=== PATIENT | male | born 1970 | race Two or more races ===

== ENCOUNTER 2024-11-22 14:46 | Emergency (ER) | payer MEDICAID, SELFPAY ==
[2024-11-22 15:48] VITALS: BP 141/82; PULSE 63; RESP 18; TEMP 37.1; O2SAT 96; BMI 35.2
--- NOTE | 2024-11-22 16:05 | XR_ITS ---
EXAMINATION: XR knee RT 3V ORDERING PROVIDER: Rodrigue Ramires NP HISTORY: pain with walking TECHNIQUE: 3 radiographs of the right knee were obtained. COMPARISON: None. FINDINGS: No acute fracture or dislocation. Mild medial and patellofemoral compartment degenerative changes. Trace knee joint effusion. Punctate radiopaque densities project over the soft tissues posterior and lateral to the proximal tib-fib. Partially viewed lobular high density object anterior to the mid femoral shaft on single view only. This may be external to the patient, but is of uncertain clinical significance. IMPRESSION: 1. No acute bony findings. 2. Trace knee joint effusion. 3. Punctate radiopaque densities projecting over the soft tissues posterior and lateral to the proximal tib-fib. This may represent punctate radiopaque foreign objects or plate artifact.
--- NOTE | 2024-11-22 16:06 | EDNOTE_ITS ---
<Statement entered by Karlie Zapata MD - 11/22/24 17:38> As co-signing physician, I was present and available for consult prn. I concur with the plan and care as documented by the midlevel provider. ED General RME/HPI General Chief complaint: Back Pain/Injury Stated complaint: RIGHT LEG PAIN AND LEFT EAR PAIN Time Seen by Provider: 11/22/24 16:02 Arrival date/time: 11/22/24 14:46 CC: Right knee pain HPI ongoing for the past 2 months, denies any redness swelling pus or fever no pain in any other joint. No primary care doctor no medications. Not in any acute distress. Related Data Previous Rx's ?Medication ?Instructions ?Recorded ibuprofen 400 mg tablet 400 mg PO Q8H #20 tabs 11/22 Allergies Allergy/AdvReac Type Severity Reaction Status Date / Time No Known Allergies Allergy Verified 11/22/24 14:48 Review of Systems Review of Systems Narrative Review of Systems: GEN: No fever, no chills, no weight loss EYES: No discharge, no visual changes, no pain HEENT: No ear pain, no congestion, no sore throat PULM: No shortness of breath, no cough, no congestion CV: No chest pain, no dyspnea on exertion, no palpitations GI: No nausea, no vomiting, no diarrhea, no pain, no constipation : No frequency, no urgency, no dysuria MUSC/SKEL: + joint pain, no back pain SKIN: No rash PSYCH: No hallucinations, no depression HEME/LYMPH: No easy bleeding or bruising tendencies NEURO: No weakness, no headache Past Medical History Social History SMOKING STATUS: Never smoker ED Exam Narrative Physical exam: [General: Obese not in any acute distress Head normocephalic HEENT: Ears: Type patient had me assess his ears, and the left ear EAC is clear but he has an old ruptured TM with small amount of fluid behind it. No exquisite tenderness no surrounding erythema or edema, l right within acceptable limits Neck is supple nontender Chest equal chest rise nontender to palpation Respiratory: Clear to auscultation no wheezes crackles or rubs CV: Rate rhythm is regular no murmurs rubs or clicks Abdomen is soft nontender no masses positive bowel sounds all 4 quadrants Back: No CVA tenderness no spinous process tenderness from cervical spine thoracic and lumbar spine Skin: Intact no petechiae rash induration ulceration or crepitus Extremities: Right knee, minimal and edema, no erythema nontender to touch no fluctuance no posterior fossa pain full range of manage weightbearing. Moving all other extremities against resistance cap refill less than 2 seconds neurosensory intact Neuro: Awake alert oriented x3 Glascow coma 15 no focal deficits] Course Quality Measures none Orders Category Date Time Status XR knee RT 3V Stat Exams 11/22/24 16:05 Completed Ketorolac Inj [Toradol Inj] Med 11/22/24 16:05 Discontinued 15 mg IM X1 ONE Vital Signs Vital signs: Vital Signs Temperature 98.8 F 11/22/24 15:48 Pulse Rate 63 11/22/24 15:48 Respiratory Rate 18 11/22/24 15:48 Blood Pressure 141/82 H 11/22/24 15:48 Pulse Oximetry (%) 96 11/22/24 15:48 Oxygen Delivery Method Room Air 11/22/24 15:48 MDM Patient data External records reviewed:: [facility] previous records Clinical information provided by:: patient Social determinants that could affect healthcare access:: none Patient has the following chronic illnesses:: None How is presenting disease/condition affected by chronic disease/condition?: uneffected by Evaluation data The following diagnostics were reviewed and interpreted by me:: radiology exam(s) Lab and/or radiology exams considered but not ordered:: X-ray shows no acute finding that requires emergent or immediate intervention of the knee. Interpretation Summary: Ruptured eardrum left side, chronic knee pain Medications Medications considered but not ordered:: None Medication administrations:: Medication Administration History Discontinued Medications Ketorolac Tromethamine (Ketorolac Inj 60 Mg/2 Ml Vial) 15 mg IM X1 ONE Stop: 11/22/24 16:06 Last Admin: 11/22/24 16:56 Dose: 15 mg Documented By: None Consultations Consultation(s) initiated? (list below): No Diagnosis Differential Diagnosis ED Complaint MDM: Ruptured TM knee fracture knee pain Most likely diagnosis given after review of the tests above:: Ruptured TM knee pain Admission Indicated Admission indicated?: not indicated Explain why admission is indicated or not indicated:: Stable for outpatient Admission Request Was there a request for admission?: No Disposition Plan Disposition Plan: Discharge Discharge Attestation Discharge Attestation: The patient and all family members were given an opportunity to ask questions and understood the discharge instructions. Discharge instructions specifically effects, indications for sooner follow up or return to the emergency department, and the expected course of current diagnosis. Patient condition: Stable Medical Decision Making Differential Diagnosis Differential Diagnosis: Ruptured TM knee fracture knee pain Discharge Plan Plan Patient Disposition: HOME (Self Care) Patient condition on transfer: Stable Prescriptions/Referrals Prescriptions/Med Rec: New ibuprofen 400 mg tablet 400 mg PO Q8H Qty: 20 0RF Referrals: Galen Rivas MD [Physician] - In 1 week No Primary/Family,Physician [Primary Care Provider] - In 1 week Robin Tian DO [Physician] - In 1 week Problem List Clinical Impression: Knee pain, Ruptured eardrum Patient/Caregiver Discharge Instructions Education Materials: ED Knee Pain of Uncertain Cause, ED Ruptured Eardrum, Traumatic Print Language: Lithuanian Stand Alone Forms: Marilin Award Info., Work/School Release, Patient Portal Info Letter MATTHEW/KEN Supervising Physician PA/KEN Supervising Physician: Rodrigue Ramires ENP
[2024-11-22] MEDS: KETOROLAC INJ 60 MG/2 ML VIAL 15 MG IM (16:56)
== END 2024-11-22 17:21 | disposition home or self-care (01) ==
PROVIDERS: Emergency Provider Emergency Medicine
DX: M25.561 Pain in right knee (principal); H72.92 Unspecified perforation of tympanic membrane, left ear
CPT/HCPCS: 73562; 96372; 99283; J1885

== ENCOUNTER → 2025-01-11 | Outpatient (CLI) | payer MEDICAID, SELFPAY ==
--- NOTE | 2025-01-11 16:30 | XR_ITS ---
Exam: MRI knee without contrast, right Date and time of exam: January 11, 2025 1701 hours INDICATIONS: Medial and anterior knee pain and stiffness and swelling beginning 2 years ago Technique: Multiple axial, coronal, and sagittal sections on the knee have been obtained. T2-Weighted sagittal, fat-suppressed images, TR 3,500, TE 62, T2 weighted coronal fat-saturated images, TR 3,500, TE 62 Proton density sagittal sections, TR 1800, TE 31. T-1 weighted coronal images, TR 524, TE 13.0 Findings: Medial meniscus anterior horn abnormal, truncation inner margin. Medial meniscus, body marked truncation inner margin with large horizontal linear tear communicating inner margin. Posterior horn medial meniscus marked truncation inner margin with horizontal linear tear communicating inner margin. Lateral meniscus anterior horn is intact Lateral meniscus, body is intact Posterior horn lateral meniscus is intact Anterior cruciate ligament moderately attenuated Posterior cruciate ligament appears intact. Knee effusion is large. Quadriceps and patellar tendons appear intact. There is no evidence of tendinosis. Inflammatory change or fracture of Hoffa's fat pad is not seen. Medial patellar facet demonstrates moderate thinning. Lateral patellar facet cartilage demonstrates moderate thinning. Trochlear cartilage demonstrates moderate thinning. Significant softening of the cartilage posterior patella at the median eminence Marrow signal adequate. Medial collateral ligament appears intact. No meniscocapsular separation is seen. Illiotibial band and fibular collateral ligament are intact. Biceps femoris tendons appear intact. Medial femoral condylar articular cartilage demonstrates severe thinning. Lateral femoral condylar articular cartilage demonstratesmoderate thinning. Tibial plateau cartilage demonstrates severe medial thinning. Impression: Extensive medial meniscus tears Moderate attenuation anterior cruciate ligament Significant softening of the cartilage posterior patella at the median eminence Severe thinning cartilage medial joint space
== END | disposition home or self-care (01) ==
LOC: SMRI 16:11
PROVIDERS: PCP Family Medicine; Referring Provider Family Medicine; Visit Provider Family Medicine
DX: S83.241A Other tear of medial meniscus, current injury, right knee, initial encounter (principal); X58.XXXA Exposure to other specified factors, initial encounter; M25.861 Other specified joint disorders, right knee; M94.8X8 Other specified disorders of cartilage, other site; G89.29 Other chronic pain
CPT/HCPCS: 73721

== ENCOUNTER 2025-03-19 14:28 | Outpatient (AMB) | payer MEDICAID, SELFPAY ==
[2025-03-19 14:53] VITALS: BP 137/83; PULSE 87; RESP 19; TEMP 36.7; O2SAT 96; BMI 35.6
--- NOTE | 2025-03-19 14:53 | PD.ORTHCLVIS ---
Vital signs 03/19/25 14:53 Height 1.65 m Height Method Stated Weight 97.239 kg Weight Measurement Method Standing Scale BMI 35.6 BP 137/83 H Blood Pressure Source Automatic Cuff Blood Pressure Location Right Upper Arm Position Sitting Respiration 19 Pulse 87 Pulse Source Monitor Temp 98.0 F Temp Source Temporal Artery Scan Pulse Oximetry (%) 96 Oxygen Delivery Method Room Air Med/Allergies Allergies & Medications Allergies No Known Allergies Allergy (Verified 03/19/25 14:55) Medication Reconciliation No Known Home Medications 03/19/25 [History Confirmed 03/19/25] Exam Exam Patient is in no acute distress and is cooperative with the examination today. Breathing is nonlabored. In no respiratory distress. Bilateral extremities were evaluated and demonstrates sensation intact to light touch. Palpable pedal pulses are present. No significant edema is present. Bilateral hips were examined. The patient has no pain with log roll of the hips. Internal rotation to 30 degrees and external rotation to 30 degrees is painless. Negative FADIR. The left knee was examined. The left knee is in varus alignment. Range of motion from 0-115 degrees. Knee is stable to varus and valgus as well as AP translation with <5mm. Patient has a negative McMurrays. There is no pain with patellofemoral compression and no crepitus noted. The knee is tender to palpation medially. The right knee was also examined. The right knee is in varus alignment. Range of motion from 0-120 degrees. Knee is stable to varus and valgus as well as AP translation with <5mm. Patient has a negative McMurrays. There is no pain with patellofemoral compression and no crepitus noted. The knee is tender to palpation medially. Assessment and Plan Problem List (1) Degenerative arthritis of knee, bilateral: Status: Acute Plan: Patient is a pleasant 54-year-old male with bilateral knee pain and bilateral knee arthritis. We discussed different treatment options. We will order weightbearing x-rays. He will need authorization for injections at the next visit. His pain is primarily medial. There is varus deformity Office Procedures GNS Level of Care Nursing/Assessment Patient Status: Established Patient Nursing Assessment/Reassesment: Medication Reconciliation, Update PMH in EMR and Vital Signs Coordination of Care: Complex Care and Chronic Disease 1-5, Education Complex Pt/Fam, Consent,records obtained, informed consent, Lab and Imaging orders, Results/Orders obtained and Staff clarify orders Special Needs: Language special needs Established Patient Charge Established Patient Point Assignment: 110 Established Patient Point Charge: EP Level 3 (80-115) MA Intake Visit Data Collection New Patient or Established: Established Patient (seen at [facility] within 3 years) Reason for Visit:: OA OF RIGHT KNEE Seen by Clinical Staff ONLY (RN/MA): No Verbal consent obtained for Telemed visit?: No 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 Required: Yes PCP or OBGYN visit in last 3 months: Yes Hx Now: No Do You Feel Safe at Home: Yes Authorities Contacted: N/A Questionairres Past Medical History Past Medical History Have you ever been diagnosed with any of the following: Neurological Problems Cerebrovascular Accident (CVA): No Transient Ischemic Attacks (TIA): No Dementia: No Alzheimer's Disease: No Parkinson's Disease: No Brain Tumor: No Meningitis: No Seizures: No Epilepsy: No Multiple Sclerosis: No Cerebral Palsy: No Amyotrophic Lateral Sclerosis (ALS/Shira Gehrig's): No Guillain-Toledo Syndrome: No Spina Bifida: No Paralysis: No Peripheral Neuropathy: No Lucero's Palsy: No Subdural Hematoma: No Migraine: No Head Trauma: No Spinal Cord Injury: No Traumatic Brain Injury: No Cardiology Problems Myocardial Infarction: No Cardiac Arrhythmia: No Atrial Fibrillation: No Angina: No Heart Murmur: No Coronary Artery Disease: No Atherosclerotic Heart Disease: No Peripheral Vascular Disease: No Hypercholesterolemia: No Aneurysm: No Congestive Heart Failure: No Congenital Heart Disease: No Valvular Heart Disease: No Rheumatic Fever: No Cardiomyopathy: No Edema: No Pericarditis: No Cellulitis: No Deep Vein Thrombosis: No Hypertension: No Hypotension: No Varicose Veins: No Respiratory Problems Chronic Obstructive Pulmonary Disease (COPD): No Asthma: No Bronchitis: No Emphysema: No Pneumonia: No Pulmonary Fibrosis: No Tuberculosis: No Pulmonary Embolism: No Pulmonary Edema: No Sleep Apnea: No CPAP Dependent: No Respiratory Aspiration: No Dyspnea: No Orthopnea: No Hx Cough: No Cough: No Wheezing: No Chest Deformities: No Smoking: No Smoking Cessation Counseling: No Smoking Exposure: No Tobacco Use: No Clubbing: No Exposure to Respiratory Irritants: No Intubation: No Stomache/Intestinal Problems Liver Cancer: No Hepatitis: No Cirrhosis: No Pancreatic Cancer: No Pancreatitis: No Celiac Disease: No Gall Bladder Disease: No Gastrointestinal Bleed: No Esophageal Varices: No Gabriel's Esophagus: No Colitis: No Ulcerative Colitis: No Diverticulitis: No Diverticulosis: No Ulcer: No Colorectal Cancer: No Irritable Bowel: No Crohn's Disease: No Obstructive Bowel: No Hiatal Hernia: No Hemorrhoids: No Gastroesophageal Reflux Disease: No Polyps: No Obesity: No Genital/Urinary Problems Chronic Kidney Disease: No Renal Disease: No Kidney Stones: No Polycystic Kidney Disease: No Neurogenic Bladder: No Inguinal Hernia: No Dialysis: No Prostate Cancer: No Benign Prostatic Hyperplasia: No Reproductive Problems Breast Cancer: No Fibroids: No Genital Herpes: No Gonorrhea: No Syphilis: No Testicular Cancer: No Musculoskeletal Problems Muscular Dystrophy: No Myasthenia Gravis: No Marfan's Syndrome: No Bone Cancer: No Arthritis: No Rheumatoid Arthritis: No Osteoporosis: No Degenerative Disk Disease: No Gout: No Scoliosis: No Carpal Tunnel Syndrome: No Fibromyalgia: No Fractures: No Degenerative Joint Disease: No Osteomyelitis: No Poliovirus: No Head,Eye,Nose,Throat Problems Cataracts: No Glaucoma: No Blind: No Retinal Detachment: No Macular Degeneration: No Chronic Ear Infections: No Deafness: No Eye Prosthesis: No Endocrine Problems Diabetes Mellitus Type 1: No Diabetes Mellitus Type 2: No Hypoglycemia: No Jasbir's Syndrome: No Clarendon's Disease: No Hyperthyroidism: No Hypothyroidism: No Thyroid Cancer: No Parathyroid Disease: No Pituitary Disease: No Systemic Lupus Erythematosus: No Syndrome of Inappropriate Antidiuretic Hormone: No Adrenal Disease: No Graves' Disease: No Blood Problems Anemia: No Leukemia: No Hemophilia: No Thalassemia: No Sickle Cell Disease: No Clotting Problems: No Psychologic Problems Schizophrenia: No Recreational Drug Use: No Bipolar Disorder: No Depression: No Anxiety: No Behavior Problems: No Attention Deficit Disorder: No Attention Deficit Hyperactivity Disorder: No Depression: No Post Traumatic Stress Disorder: No Other Problems Hospitalization: No Autoimmune Disease: No Down Syndrome: No Autism: No Developmental Delay: No Cosmetic Surgery: No Shingles: No Falls: No Blood Transfusions: No Blood Transfusion Reaction: No Anesthesia Reactions: No Organ Transplant: No Chemotherapy: No Radiation Therapy: No Hyperbaric Therapy: No MRSA: No VRSA: No Vancomycin-Resistant Enterococci: No Human Immunodeficiency Virus (HIV): No Chicken Pox: No Measles: No Mumps: No Rubella (St [place]ian Measles): No Pertussis: No Klebsiella Pneumoniae Carbapenemase Producing Bacteria: No Clostridium Difficile: No Hepatitis A: No Hepatitis B: No Hepatitis C: No Communicable Disease: No Cancer: No Lung Cancer: No Surgical History Angioplasty: No Appendectomy: No Bariatric Surgery: No Breast Surgery: No Cancer Surgery: No Carotid Endarterectomy: No Cholecystectomy: No Colectomy: No Colostomy: No Coronary Artery Bypass Graft: No Valve Replacement: No Herniorrhaphy: No Total Hip Replacement: No Total Knee Replacement: No Pacemaker: No Sinus Surgery: No Splenectomy: No Thyroidectomy: No Ureter Stent: No Subjective Visit Visit for: new patient and knee Immunization / Flu Flu Vaccine in the Last 12 Months: No Flu Vaccine Exclusion Criteria: No Exclusion Criteria History of Present Illness Chief complaint: BILATERAL KNEE PAIN Date of injury / onset of symptoms: 2021 Personal History Occupation: [employer] PMH: BMI and none BMI Counceling provided: Yes Pain Pain level (0-10): 6 Pain duration: WITH MOVEMENT Pain location: inside (medial) and anterior Pain quality: dull and aching Pain timing: night, increases with activity and stairs Associated signs & symptoms: numbness Ambulatory data Ambulatory device: none Treatments Number of previous injections: 0 Improvement with previous injections: No Number of Physical Therapy sessions: 0 Improvement with PT: No Improvement with NSAIDS: no (IBUPROFEN, DICLOFENAC ) Review of Systems Review of Systems: All systems negative unless otherwise noted in HPI.
--- NOTE | 2025-03-19 15:03 | XR_ITS ---
Examination: Bilateral knees 2 views Standing right lateral knee left lateral knee 2 views Right axial knee left axial knee 2 views TECHNIQUE: Bilateral AP knees standing single view, bilateral PA knees standing single view flexion Standing right lateral knee left lateral knee 2 views Right axial knee left axial knee 2 views total 6 views Date and time of exam: March 19, 2025 1521 hours INDICATIONS: Bilateral knee pain 3 years. FINDINGS: Moderate osteopenia Moderate to advanced narrowing medial joint space right knee Moderate to advanced osteoarthritis right patellofemoral joint Mild to moderate narrowing medial joint space left knee Mild to moderate osteoarthritis left patellofemoral joint IMPRESSION: Moderate to advanced narrowing medial joint space right knee Moderate to advanced osteoarthritis right patellofemoral joint
== END 2025-03-19 15:08 | disposition home or self-care (01) ==
LOC: HODSRG 14:28
PROVIDERS: PCP Family Medicine; Referring Provider Family Medicine; Supervising Provider Orthopaedic Surgery Adult Reconstructive Orthopaedic Surgery; Visit Provider Orthopaedic Surgery Adult Reconstructive Orthopaedic Surgery
DX: M17.0 Bilateral primary osteoarthritis of knee (principal); M25.562 Pain in left knee; M25.561 Pain in right knee
CPT/HCPCS: 73564; 99213; G0463

== ENCOUNTER 2025-04-05 14:46 | Outpatient (AMB) | payer MEDICAID, SELFPAY ==
--- NOTE | 2025-04-05 15:28 | ORTHONT_ITS ---
Vital signs 04/05/25 15:43 Height 1.65 m Height Method Stated Weight 98.43 kg Weight Measurement Method Standing Scale BMI 36.1 BP 134/87 H Blood Pressure Source Automatic Cuff Blood Pressure Location Left Upper Arm Position Sitting Respiration 18 Pulse 78 Pulse Source Monitor Temp 97.9 F Temp Source Temporal Artery Scan Pulse Oximetry (%) 99 Oxygen Delivery Method Room Air Med/Allergies Allergies & Medications Allergies No Known Allergies Allergy (Verified 04/05/25 15:43) Medication Reconciliation meloxicam 7.5 mg tablet 7.5 mg PO QDAY #45 tabs 03/22/25 [Rx Confirmed 04/05/25] Exam Exam Patient is in no acute distress and is cooperative with the examination today. Breathing is nonlabored. In no respiratory distress. Bilateral extremities were evaluated and demonstrates sensation intact to light touch. Palpable pedal pulses are present. No significant edema is present. Bilateral hips were examined. The patient has no pain with log roll of the hips. Internal rotation to 30 degrees and external rotation to 30 degrees is painless. Negative FADIR. The left knee was examined. The left knee is in varus alignment. Range of motion from 0-115 degrees. Knee is stable to varus and valgus as well as AP translation with <5mm. Patient has a negative McMurrays. There is no pain with patellofemoral compression and no crepitus noted. The knee is tender to palpation medially. The right knee was also examined. The right knee is in varus alignment. Range of motion from 0-120 degrees. Knee is stable to varus and valgus as well as AP translation with <5mm. Patient has a negative McMurrays. There is no pain with patellofemoral compression and no crepitus noted. The knee is tender to palpation medially. X-rays demonstrate moderate to severe arthritis on the right and moderate arthritis on the left Assessment and Plan Problem List (1) Degenerative arthritis of knee, bilateral: Status: Acute Plan: Patient is a pleasant 54-year-old male with bilateral knee pain and bilateral knee arthritis. We discussed different treatment options. We will order weightbearing x-rays. He will need authorization for injections at the next visit. His pain is primarily medial. There is varus deformity Recommend knee cortisone injection as patient would like to proceed with conservative treatment at this time. The risks and benefits of the procedure were reviewed with the patient and patient gave verbal consent to continue with the procedure. Procedure: performed by Dr. Berumen Using sterile technique the left knee was thoroughly prepped with alcohol, and approximately 1 cc of Depo-Medrol 80mg/mL and 4 cc of 0.2% ropivacaine was injected without resistance into the medial tibial femoral joint space. The patient tolerated the procedure. Office Procedures GNS Level of Care Nursing/Assessment Patient Status: Established Patient Nursing Assessment/Reassesment: Medication Reconciliation, Update PMH in EMR and Vital Signs Coordination of Care: Complex Care and Chronic Disease 1-5, Education Complex Pt/Fam, Consent,records obtained, informed consent, Results/Orders obtained and Staff clarify orders Special Needs: Language special needs Established Patient Charge Established Patient Point Assignment: 95 Established Patient Point Charge: EP Level 3 (80-115) Surgical Proc/IM SQ injection Major Surgical Procedure: Yes (KNEE INJECTION) GNS Level of Care Nursing/Assessment Patient Status: Established Patient Nursing Assessment/Reassesment: Medication Reconciliation, Update PMH in EMR and Vital Signs Coordination of Care: Complex Care and Chronic Disease 1-5, Education Complex Pt/Fam, Consent,records obtained, informed consent, Results/Orders obtained and Staff clarify orders Special Needs: Language special needs Established Patient Charge Established Patient Point Assignment: 95 Established Patient Point Charge: EP Level 3 (80-115) Surgical Proc/IM SQ injection Major Surgical Procedure: Yes (KNEE SURGERY) Medication Given Medication Given Medication Given: Yes Documented Dose Given: 1 Route: Infiitration Medication Given Medication Given Medication Given: Yes Documented Dose Given: 4 Route: Infiitration Office Meds methylprednisolone acetate 80 mg/mL suspension for injection Performing Provider: Navdeep Berumen MD Performing Location: [facility] Administered by: Navdeep Berumen MD on 04/05/25 15:43 Dose Route Admin Location Dispensed Lot Number Expiration Date [facility] Nurse [employer] 80 mg intra-articular KNEE 1 mL [id number] 08/11/26 [address]-8 [facility] ropivacaine (PF) 2 mg/mL (0.2 %) injection solution Performing Provider: Navdeep Berumen MD Performing Location: [facility] Administered by: Navdeep Berumen MD on 04/05/25 15:43 Dose Route Admin Location Dispensed Lot Number Expiration Date [facility] Nurse Research 20 mL Infiltration KNEE 20 mL [id number] 08/11/26 54181-838-65 PARVEEN KELLIE ANNE MA Intake Visit Data Collection New Patient or Established: Established Patient (seen at [facility] within 3 years) Reason for Visit:: BL KNEE PAIN/XRAY RESULTS/INJ Seen by Clinical Staff ONLY (RN/MA): No Fifth Hand Required: Yes PCP or OBGYN visit in last 3 months: Yes Hx Now: No Do You Feel Safe at Home: Yes Authorities Contacted: N/A Questionairres Past Medical History Past Medical History Have you ever been diagnosed with any of the following: Neurological Problems Cerebrovascular Accident (CVA): No Transient Ischemic Attacks (TIA): No Dementia: No Alzheimer's Disease: No Parkinson's Disease: No Brain Tumor: No Meningitis: No Seizures: No Epilepsy: No Multiple Sclerosis: No Cerebral Palsy: No Amyotrophic Lateral Sclerosis (ALS/Shira Gehrig's): No Guillain-Mooers Syndrome: No Spina Bifida: No Paralysis: No Peripheral Neuropathy: No Lucero's Palsy: No Subdural Hematoma: No Migraine: No Head Trauma: No Spinal Cord Injury: No Traumatic Brain Injury: No Cardiology Problems Myocardial Infarction: No Cardiac Arrhythmia: No Atrial Fibrillation: No Angina: No Heart Murmur: No Coronary Artery Disease: No Atherosclerotic Heart Disease: No Peripheral Vascular Disease: No Hypercholesterolemia: No Aneurysm: No Congestive Heart Failure: No Congenital Heart Disease: No Valvular Heart Disease: No Rheumatic Fever: No Cardiomyopathy: No Edema: No Pericarditis: No Cellulitis: No Deep Vein Thrombosis: No Hypertension: No Hypotension: No Varicose Veins: No Respiratory Problems Chronic Obstructive Pulmonary Disease (COPD): No Asthma: No Bronchitis: No Emphysema: No Pneumonia: No Pulmonary Fibrosis: No Tuberculosis: No Pulmonary Embolism: No Pulmonary Edema: No Sleep Apnea: No CPAP Dependent: No Respiratory Aspiration: No Dyspnea: No Orthopnea: No Hx Cough: No Cough: No Wheezing: No Chest Deformities: No Smoking: No Smoking Cessation Counseling: No Smoking Exposure: No Tobacco Use: No Clubbing: No Exposure to Respiratory Irritants: No Intubation: No Stomache/Intestinal Problems Liver Cancer: No Hepatitis: No Cirrhosis: No Pancreatic Cancer: No Pancreatitis: No Celiac Disease: No Gall Bladder Disease: No Gastrointestinal Bleed: No Esophageal Varices: No Gabriel's Esophagus: No Colitis: No Ulcerative Colitis: No Diverticulitis: No Diverticulosis: No Ulcer: No Colorectal Cancer: No Irritable Bowel: No Crohn's Disease: No Obstructive Bowel: No Hiatal Hernia: No Hemorrhoids: No Gastroesophageal Reflux Disease: No Obesity: No Genital/Urinary Problems Renal Disease: No Kidney Stones: No Polycystic Kidney Disease: No Neurogenic Bladder: No Inguinal Hernia: No Dialysis: No Prostate Cancer: No Benign Prostatic Hyperplasia: No Reproductive Problems Breast Cancer: No Fibroids: No Genital Herpes: No Gonorrhea: No Syphilis: No Testicular Cancer: No Musculoskeletal Problems Muscular Dystrophy: No Myasthenia Gravis: No Marfan's Syndrome: No Bone Cancer: No Arthritis: No Rheumatoid Arthritis: No Osteoporosis: No Degenerative Disk Disease: No Gout: No Scoliosis: No Carpal Tunnel Syndrome: No Fibromyalgia: No Fractures: No Degenerative Joint Disease: No Osteomyelitis: No Poliovirus: No Head,Eye,Nose,Throat Problems Cataracts: No Glaucoma: No Blind: No Retinal Detachment: No Macular Degeneration: No Chronic Ear Infections: No Deafness: No Eye Prosthesis: No Endocrine Problems Diabetes Mellitus Type 1: No Diabetes Mellitus Type 2: No Hypoglycemia: No Jasbir's Syndrome: No [place]'s Disease: No Hyperthyroidism: No Hypothyroidism: No Thyroid Cancer: No Parathyroid Disease: No Pituitary Disease: No Systemic Lupus Erythematosus: No Syndrome of Inappropriate Antidiuretic Hormone: No Adrenal Disease: No Graves' Disease: No Blood Problems Anemia: No Leukemia: No Hemophilia: No Thalassemia: No Sickle Cell Disease: No Clotting Problems: No Psychologic Problems Schizophrenia: No Recreational Drug Use: No Bipolar Disorder: No Depression: No Anxiety: No Behavior Problems: No Attention Deficit Disorder: No Attention Deficit Hyperactivity Disorder: No Depression: No Post Traumatic Stress Disorder: No Other Problems Hospitalization: No Down Syndrome: No Autism: No Developmental Delay: No Cosmetic Surgery: No Shingles: No Falls: No Blood Transfusions: No Blood Transfusion Reaction: No Anesthesia Reactions: No Organ Transplant: No Chemotherapy: No Radiation Therapy: No Hyperbaric Therapy: No MRSA: No VRSA: No Vancomycin-Resistant Enterococci: No Human Immunodeficiency Virus (HIV): No Chicken Pox: No Measles: No Mumps: No Rubella ([place] Measles): No Pertussis: No Klebsiella Pneumoniae Carbapenemase Producing Bacteria: No Clostridium Difficile: No Hepatitis A: No Hepatitis B: No Hepatitis C: No Communicable Disease: No Cancer: No Lung Cancer: No Surgical History Angioplasty: No Appendectomy: No Bariatric Surgery: No Breast Surgery: No Cancer Surgery: No Carotid Endarterectomy: No Cholecystectomy: No Colectomy: No Colostomy: No Coronary Artery Bypass Graft: No Valve Replacement: No Herniorrhaphy: No Total Hip Replacement: No Total Knee Replacement: No Pacemaker: No Sinus Surgery: No Splenectomy: No Thyroidectomy: No Ureter Stent: No Subjective Visit Visit for: follow up visit, knee, x-rays and injections Immunization / Flu Flu Vaccine in the Last 12 Months: No Flu Vaccine Exclusion Criteria: No Exclusion Criteria History of Present Illness Chief complaint: right knee pain Date of injury / onset of symptoms: 2021 Patient is a pleasant 54-year-old male with right greater than left knee pain. Is been ongoing for several years. He has not had any injections. Has tried different anti-inflammatories including ibuprofen in the past. He has not any formal physical therapy Personal History Occupation: [employer] PMH: BMI and none BMI Counceling provided: Yes Pain Pain level (0-10): 6 Pain duration: WITH MOVEMENT Pain location: inside (medial) and anterior Pain quality: dull and aching Pain timing: night, increases with activity and stairs Associated signs & symptoms: numbness Ambulatory data Ambulatory device: none Treatments Number of previous injections: 0 Improvement with previous injections: No Number of Physical Therapy sessions: 0 Improvement with PT: No Improvement with NSAIDS: no (IBUPROFEN, DICLOFENAC ) Review of Systems Review of Systems: All systems negative unless otherwise noted in HPI.
[2025-04-05 15:43] VITALS: BP 134/87; PULSE 78; RESP 18; TEMP 36.6; O2SAT 99; BMI 36.1
== END 2025-04-05 15:40 | disposition home or self-care (01) ==
LOC: HODSRG 14:46
PROVIDERS: PCP Family Medicine; Referring Provider Family Medicine; Supervising Provider Orthopaedic Surgery Adult Reconstructive Orthopaedic Surgery; Visit Provider Orthopaedic Surgery Adult Reconstructive Orthopaedic Surgery
DX: M17.0 Bilateral primary osteoarthritis of knee (principal); M25.562 Pain in left knee; M25.561 Pain in right knee
CPT/HCPCS: 20610; 99213; J1010; J2795; G0463

== ENCOUNTER 2025-04-09 15:19 | Outpatient (AMB) | payer MEDICAID, SELFPAY ==
[2025-04-09 15:39] VITALS: BP 114/97; PULSE 93; RESP 18; TEMP 36.7; O2SAT 96; BMI 36.1
--- NOTE | 2025-04-09 15:39 | PD.ORTHCLVIS ---
Vital signs 04/09/25 15:39 Height 1.65 m Height Method Stated Weight 98.231 kg Weight Measurement Method Standing Scale BMI 36.1 BP 114/97 H Blood Pressure Source Automatic Cuff Blood Pressure Location Left Upper Arm Position Sitting Respiration 18 Pulse 93 Pulse Source Monitor Temp 98.1 F Temp Source Temporal Artery Scan Pulse Oximetry (%) 96 Oxygen Delivery Method Room Air Med/Allergies Allergies & Medications Allergies No Known Allergies Allergy (Verified 04/09/25 15:40) Medication Reconciliation meloxicam 7.5 mg tablet 7.5 mg PO QDAY #45 tabs 03/22/25 [Rx Confirmed 04/09/25] Exam Exam Patient is in no acute distress and is cooperative with the examination today. Breathing is nonlabored. In no respiratory distress. Bilateral extremities were evaluated and demonstrates sensation intact to light touch. Palpable pedal pulses are present. No significant edema is present. Bilateral hips were examined. The patient has no pain with log roll of the hips. Internal rotation to 30 degrees and external rotation to 30 degrees is painless. Negative FADIR. The left knee was examined. The left knee is in varus alignment. Range of motion from 0-115 degrees. Knee is stable to varus and valgus as well as AP translation with <5mm. Patient has a negative McMurrays. There is no pain with patellofemoral compression and no crepitus noted. The knee is tender to palpation medially. The right knee was also examined. The right knee is in varus alignment. Range of motion from 0-120 degrees. Knee is stable to varus and valgus as well as AP translation with <5mm. Patient has a negative McMurrays. There is no pain with patellofemoral compression and no crepitus noted. The knee is tender to palpation medially. X-rays demonstrate moderate to severe arthritis on the right and moderate arthritis on the left Assessment and Plan Problem List (1) Degenerative arthritis of knee, bilateral: Status: Acute Plan: Patient is a pleasant 54-year-old male with bilateral knee pain and bilateral knee arthritis. We discussed different treatment options. We will order weightbearing x-rays. He will need authorization for injections at the next visit. His pain is primarily medial. There is varus deformity Recommend knee cortisone injection as patient would like to proceed with conservative treatment at this time. The risks and benefits of the procedure were reviewed with the patient and patient gave verbal consent to continue with the procedure. Procedure: performed by Dr. Berumen Using sterile technique the Right knee was thoroughly prepped with alcohol, and approximately 1 cc of Depo-Medrol 80mg/mL and 4 cc of 0.2% ropivacaine was injected without resistance into the medial tibial femoral joint space. The patient tolerated the procedure. Office Procedures GNS Level of Care Nursing/Assessment Patient Status: Established Patient Nursing Assessment/Reassesment: Medication Reconciliation, Update PMH in EMR and Vital Signs Coordination of Care: Complex Care and Chronic Disease 1-5, Education Complex Pt/Fam, Consent,records obtained, informed consent, Results/Orders obtained and Staff clarify orders Special Needs: Language special needs Established Patient Charge Established Patient Point Assignment: 95 Established Patient Point Charge: EP Level 3 (80-115) Medication Given Medication Given Medication Given: Yes Documented Dose Given: 1 Route: Infiitration Medication Given Medication Given Medication Given: Yes Documented Dose Given: 4 Route: Infiitration Office Meds methylprednisolone acetate 80 mg/mL suspension for injection Performing Provider: Navdeep Berumen MD Performing Location: [facility] Administered by: Navdeep Berumen MD on 04/09/25 15:57 Dose Route Admin Location Dispensed Lot Number Expiration Date [facility] [employer] Tender 80 mg intra-articular KNEE 1 mL [id number] 02/09/27 [address]-1 [employer] ropivacaine (PF) 2 mg/mL (0.2 %) injection solution Performing Provider: Navdeep Berumen MD Performing Location: [facility] Administered by: Navdeep Berumen MD on 04/09/25 15:57 Dose Route Admin Location Dispensed Lot Number Expiration Date [facility] [employer] Back Tender 20 mL Infiltration KNEE 20 mL [id number] 07/12/26 45786-162-39 [facility] Intake Visit Data Collection New Patient or Established: Established Patient (seen at [facility] within 3 years) Reason for Visit:: RIGHT KNEE INJECTION Seen by Clinical Staff ONLY (RN/MA): No 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 PCP or OBGYN visit in last 3 months: Yes Hx Now: No Do You Feel Safe at Home: Yes Authorities Contacted: N/A Questionairres Past Medical History Past Medical History Have you ever been diagnosed with any of the following: Neurological Problems Cerebrovascular Accident (CVA): No Transient Ischemic Attacks (TIA): No Dementia: No Alzheimer's Disease: No Parkinson's Disease: No Brain Tumor: No Meningitis: No Seizures: No Epilepsy: No Multiple Sclerosis: No Cerebral Palsy: No Amyotrophic Lateral Sclerosis (ALS/Shira Gehrig's): No Guillain-[place] Syndrome: No Spina Bifida: No Paralysis: No Peripheral Neuropathy: No Lucero's Palsy: No Subdural Hematoma: No Migraine: No Head Trauma: No Spinal Cord Injury: No Traumatic Brain Injury: No Cardiology Problems Myocardial Infarction: No Cardiac Arrhythmia: No Atrial Fibrillation: No Angina: No Heart Murmur: No Coronary Artery Disease: No Atherosclerotic Heart Disease: No Peripheral Vascular Disease: No Hypercholesterolemia: No Aneurysm: No Congestive Heart Failure: No Congenital Heart Disease: No Valvular Heart Disease: No Rheumatic Fever: No Cardiomyopathy: No Edema: No Pericarditis: No Cellulitis: No Deep Vein Thrombosis: No Hypertension: No Hypotension: No Varicose Veins: No Respiratory Problems Chronic Obstructive Pulmonary Disease (COPD): No Asthma: No Bronchitis: No Emphysema: No Pneumonia: No Pulmonary Fibrosis: No Tuberculosis: No Pulmonary Embolism: No Pulmonary Edema: No Sleep Apnea: No CPAP Dependent: No Respiratory Aspiration: No Dyspnea: No Orthopnea: No Hx Cough: No Cough: No Wheezing: No Chest Deformities: No Smoking: No Smoking Cessation Counseling: No Smoking Exposure: No Tobacco Use: No Clubbing: No Exposure to Respiratory Irritants: No Intubation: No Stomache/Intestinal Problems Liver Cancer: No Hepatitis: No Cirrhosis: No Pancreatic Cancer: No Pancreatitis: No Celiac Disease: No Gall Bladder Disease: No Gastrointestinal Bleed: No Esophageal Varices: No Gabriel's Esophagus: No Colitis: No Ulcerative Colitis: No Diverticulitis: No Diverticulosis: No Ulcer: No Colorectal Cancer: No Irritable Bowel: No Crohn's Disease: No Obstructive Bowel: No Hiatal Hernia: No Hemorrhoids: No Gastroesophageal Reflux Disease: No Obesity: No Genital/Urinary Problems Renal Disease: No Kidney Stones: No Polycystic Kidney Disease: No Neurogenic Bladder: No Inguinal Hernia: No Dialysis: No Prostate Cancer: No Benign Prostatic Hyperplasia: No Reproductive Problems Breast Cancer: No Fibroids: No Genital Herpes: No Gonorrhea: No Syphilis: No Testicular Cancer: No Musculoskeletal Problems Muscular Dystrophy: No Myasthenia Gravis: No Marfan's Syndrome: No Bone Cancer: No Arthritis: No Rheumatoid Arthritis: No Osteoporosis: No Degenerative Disk Disease: No Gout: No Scoliosis: No Carpal Tunnel Syndrome: No Fibromyalgia: No Fractures: No Degenerative Joint Disease: No Osteomyelitis: No Poliovirus: No Head,Eye,Nose,Throat Problems Cataracts: No Glaucoma: No Blind: No Retinal Detachment: No Macular Degeneration: No Chronic Ear Infections: No Deafness: No Eye Prosthesis: No Endocrine Problems Diabetes Mellitus Type 1: No Diabetes Mellitus Type 2: No Hypoglycemia: No [place]'s Syndrome: No [place]ijay's Disease: No Hyperthyroidism: No Hypothyroidism: No Thyroid Cancer: No Parathyroid Disease: No Pituitary Disease: No Systemic Lupus Erythematosus: No Syndrome of Inappropriate Antidiuretic Hormone: No Adrenal Disease: No Graves' Disease: No Blood Problems Anemia: No Leukemia: No Hemophilia: No Thalassemia: No Sickle Cell Disease: No Clotting Problems: No Psychologic Problems Schizophrenia: No Recreational Drug Use: No Bipolar Disorder: No Depression: No Anxiety: No Behavior Problems: No Attention Deficit Disorder: No Attention Deficit Hyperactivity Disorder: No Depression: No Post Traumatic Stress Disorder: No Other Problems Hospitalization: No Down Syndrome: No Autism: No Developmental Delay: No Cosmetic Surgery: No Shingles: No Falls: No Blood Transfusions: No Blood Transfusion Reaction: No Anesthesia Reactions: No Organ Transplant: No Chemotherapy: No Radiation Therapy: No Hyperbaric Therapy: No MRSA: No VRSA: No Vancomycin-Resistant Enterococci: No Human Immunodeficiency Virus (HIV): No Chicken Pox: No Measles: No Mumps: No Rubella ([place] Measles): No Pertussis: No Klebsiella Pneumoniae Carbapenemase Producing Bacteria: No Clostridium Difficile: No Hepatitis A: No Hepatitis B: No Hepatitis C: No Communicable Disease: No Cancer: No Lung Cancer: No Surgical History Angioplasty: No Appendectomy: No Bariatric Surgery: No Breast Surgery: No Cancer Surgery: No Carotid Endarterectomy: No Cholecystectomy: No Colectomy: No Colostomy: No Coronary Artery Bypass Graft: No Valve Replacement: No Herniorrhaphy: No Total Hip Replacement: No Total Knee Replacement: No Pacemaker: No Sinus Surgery: No Splenectomy: No Thyroidectomy: No Ureter Stent: No Subjective Visit Visit for: follow up visit, knee, x-rays and injections Immunization / Flu Flu Vaccine in the Last 12 Months: No Flu Vaccine Exclusion Criteria: No Exclusion Criteria History of Present Illness Chief complaint: right knee pain Date of injury / onset of symptoms: 2021 Patient is a pleasant 54-year-old male with right greater than left knee pain. Is been ongoing for several years. He has not had any injections. Has tried different anti-inflammatories including ibuprofen in the past. He has not any formal physical therapy Personal History Occupation: [employer] PMH: BMI and none BMI Counceling provided: Yes Pain Pain level (0-10): 6 Pain duration: WITH MOVEMENT Pain location: inside (medial) and anterior Pain quality: dull and aching Pain timing: night, increases with activity and stairs Associated signs & symptoms: numbness Ambulatory data Ambulatory device: none Treatments Number of previous injections: 0 Improvement with previous injections: No Number of Physical Therapy sessions: 0 Improvement with PT: No Improvement with NSAIDS: no (IBUPROFEN, DICLOFENAC ) Review of Systems Review of Systems: All systems negative unless otherwise noted in HPI.
== END 2025-04-09 15:57 | disposition home or self-care (01) ==
LOC: HODSRG 15:19
PROVIDERS: PCP Family Medicine; Referring Provider Family Medicine; Supervising Provider Orthopaedic Surgery Adult Reconstructive Orthopaedic Surgery; Visit Provider Orthopaedic Surgery Adult Reconstructive Orthopaedic Surgery
DX: M17.0 Bilateral primary osteoarthritis of knee (principal); M25.562 Pain in left knee; M25.561 Pain in right knee
CPT/HCPCS: 20610; 99213; J1010; J2795; G0463

== ENCOUNTER 2025-07-09 14:51 | Outpatient (AMB) | payer MEDICAID, SELFPAY ==
[2025-07-09 15:09] VITALS: BP 163/110; PULSE 102; RESP 18; TEMP 36.8; O2SAT 93; BMI 33.8
--- NOTE | 2025-07-09 15:09 | PD.ORTHCLVIS ---
Vital signs 07/09/25 15:09 Height 1.65 m Height Method Stated Weight 92.108 kg Weight Measurement Method Standing Scale BMI 33.8 BP 163/110 H Blood Pressure Source Automatic Cuff Blood Pressure Location Left Upper Arm Position Sitting Respiration 18 Pulse 102 H Pulse Source Monitor Temp 98.3 F Temp Source Temporal Artery Scan Pulse Oximetry (%) 93 L Oxygen Delivery Method Room Air Med/Allergies Allergies & Medications Allergies No Known Allergies Allergy (Verified 07/09/25 15:10) Medication Reconciliation meloxicam 7.5 mg tablet 7.5 mg PO QDAY #45 tabs 03/22/25 [Rx Confirmed 07/09/25] Exam Exam Patient is in no acute distress and is cooperative with the examination today. Breathing is nonlabored. In no respiratory distress. Bilateral extremities were evaluated and demonstrates sensation intact to light touch. Palpable pedal pulses are present. No significant edema is present. Bilateral hips were examined. The patient has no pain with log roll of the hips. Internal rotation to 30 degrees and external rotation to 30 degrees is painless. Negative FADIR. The left knee was examined. The left knee is in varus alignment. Range of motion from 0-115 degrees. Knee is stable to varus and valgus as well as AP translation with <5mm. Patient has a negative McMurrays. There is no pain with patellofemoral compression and no crepitus noted. The knee is tender to palpation medially. The right knee was also examined. The right knee is in varus alignment. Range of motion from 0-120 degrees. Knee is stable to varus and valgus as well as AP translation with <5mm. Patient has a negative McMurrays. There is no pain with patellofemoral compression and no crepitus noted. The knee is tender to palpation medially. X-rays demonstrate moderate to severe arthritis on the right and moderate arthritis on the left Assessment and Plan Problem List (1) Degenerative arthritis of knee, bilateral: Status: Acute Plan: Patient is a pleasant 54-year-old male with bilateral knee pain and bilateral knee arthritis. We discussed different treatment options. He has moderate to severe arthritis on the right knee and moderate arthritis of the left knee.. He will need authorization for injections at the next visit. His pain is primarily medial. There is varus deformity We will try physical therapy as he has not tried this. We will also get him a second opinion as he thinks he needs urgent surgery. I am hesitant to do this with his severity of arthritis. He is very much pushing us to do surgery but I do not think that he is exhausted conservative treatment. I discussed with him that he may be better off getting a second opinion. Office Procedures GNS Level of Care Nursing/Assessment Patient Status: Established Patient Nursing Assessment/Reassesment: Medication Reconciliation, Update PMH in EMR and Vital Signs Coordination of Care: Complex Care and Chronic Disease 1-5, Education Complex Pt/Fam, Consent,records obtained, informed consent, Results/Orders obtained and Staff clarify orders Special Needs: Language special needs Established Patient Charge Established Patient Point Assignment: 95 Established Patient Point Charge: EP Level 3 (80-115) MA Intake Visit Data Collection New Patient or Established: Established Patient (seen at [facility] within 3 years) Reason for Visit:: 3MTH BL KNEE INJ FU Seen by Clinical Staff ONLY (RN/MA): No Grant Manager Required: Yes PCP or OBGYN visit in last 3 months: Yes Hx Now: No Do You Feel Safe at Home: Yes Authorities Contacted: N/A Questionairres Past Medical History Past Medical History Have you ever been diagnosed with any of the following: Neurological Problems Cerebrovascular Accident (CVA): No Transient Ischemic Attacks (TIA): No Dementia: No Alzheimer's Disease: No Parkinson's Disease: No Brain Tumor: No Meningitis: No Seizures: No Epilepsy: No Multiple Sclerosis: No Cerebral Palsy: No Amyotrophic Lateral Sclerosis (ALS/Shira Gehrig's): No Guillain-Wawarsing Syndrome: No Spina Bifida: No Paralysis: No Peripheral Neuropathy: No Lucero's Palsy: No Subdural Hematoma: No Migraine: No Head Trauma: No Spinal Cord Injury: No Traumatic Brain Injury: No Cardiology Problems Myocardial Infarction: No Cardiac Arrhythmia: No Atrial Fibrillation: No Angina: No Heart Murmur: No Coronary Artery Disease: No Atherosclerotic Heart Disease: No Peripheral Vascular Disease: No Hypercholesterolemia: No Aneurysm: No Congestive Heart Failure: No Congenital Heart Disease: No Valvular Heart Disease: No Rheumatic Fever: No Cardiomyopathy: No Edema: No Pericarditis: No Cellulitis: No Deep Vein Thrombosis: No Hypertension: No Hypotension: No Varicose Veins: No Respiratory Problems Chronic Obstructive Pulmonary Disease (COPD): No Asthma: No Bronchitis: No Emphysema: No Pneumonia: No Pulmonary Fibrosis: No Tuberculosis: No Pulmonary Embolism: No Pulmonary Edema: No Sleep Apnea: No CPAP Dependent: No Respiratory Aspiration: No Dyspnea: No Orthopnea: No Hx Cough: No Cough: No Wheezing: No Chest Deformities: No Smoking: No Smoking Cessation Counseling: No Smoking Exposure: No Tobacco Use: No Clubbing: No Exposure to Respiratory Irritants: No Intubation: No Stomache/Intestinal Problems Liver Cancer: No Hepatitis: No Cirrhosis: No Pancreatic Cancer: No Pancreatitis: No Celiac Disease: No Gall Bladder Disease: No Gastrointestinal Bleed: No Esophageal Varices: No Gabriel's Esophagus: No Colitis: No Ulcerative Colitis: No Diverticulitis: No Diverticulosis: No Ulcer: No Colorectal Cancer: No Irritable Bowel: No Crohn's Disease: No Obstructive Bowel: No Hiatal Hernia: No Hemorrhoids: No Gastroesophageal Reflux Disease: No Obesity: No Genital/Urinary Problems Renal Disease: No Kidney Stones: No Polycystic Kidney Disease: No Neurogenic Bladder: No Inguinal Hernia: No Dialysis: No Prostate Cancer: No Benign Prostatic Hyperplasia: No Reproductive Problems Breast Cancer: No Fibroids: No Genital Herpes: No Gonorrhea: No Syphilis: No Testicular Cancer: No Musculoskeletal Problems Muscular Dystrophy: No Myasthenia Gravis: No Marfan's Syndrome: No Bone Cancer: No Arthritis: No Rheumatoid Arthritis: No Osteoporosis: No Degenerative Disk Disease: No Gout: No Scoliosis: No Carpal Tunnel Syndrome: No Fibromyalgia: No Fractures: No Degenerative Joint Disease: No Osteomyelitis: No Poliovirus: No Head,Eye,Nose,Throat Problems Cataracts: No Glaucoma: No Blind: No Retinal Detachment: No Macular Degeneration: No Chronic Ear Infections: No Deafness: No Eye Prosthesis: No Endocrine Problems Diabetes Mellitus Type 1: No Diabetes Mellitus Type 2: No Hypoglycemia: No Jasbir's Syndrome: No Alcorn's Disease: No Hyperthyroidism: No Hypothyroidism: No Thyroid Cancer: No Parathyroid Disease: No Pituitary Disease: No Systemic Lupus Erythematosus: No Syndrome of Inappropriate Antidiuretic Hormone: No Adrenal Disease: No Graves' Disease: No Blood Problems Anemia: No Leukemia: No Hemophilia: No Thalassemia: No Sickle Cell Disease: No Clotting Problems: No Psychologic Problems Schizophrenia: No Recreational Drug Use: No Bipolar Disorder: No Depression: No Anxiety: No Behavior Problems: No Attention Deficit Disorder: No Attention Deficit Hyperactivity Disorder: No Depression: No Post Traumatic Stress Disorder: No Other Problems Hospitalization: No Down Syndrome: No Autism: No Developmental Delay: No Cosmetic Surgery: No Shingles: No Falls: No Blood Transfusions: No Blood Transfusion Reaction: No Anesthesia Reactions: No Organ Transplant: No Chemotherapy: No Radiation Therapy: No Hyperbaric Therapy: No MRSA: No VRSA: No Vancomycin-Resistant Enterococci: No Human Immunodeficiency Virus (HIV): No Chicken Pox: No Measles: No Mumps: No Rubella (French Measles): No Pertussis: No Klebsiella Pneumoniae Carbapenemase Producing Bacteria: No Clostridium Difficile: No Hepatitis A: No Hepatitis B: No Hepatitis C: No Communicable Disease: No Cancer: No Lung Cancer: No Surgical History Angioplasty: No Appendectomy: No Bariatric Surgery: No Breast Surgery: No Cancer Surgery: No Carotid Endarterectomy: No Cholecystectomy: No Colectomy: No Colostomy: No Coronary Artery Bypass Graft: No Valve Replacement: No Herniorrhaphy: No Total Hip Replacement: No Total Knee Replacement: No Pacemaker: No Sinus Surgery: No Splenectomy: No Thyroidectomy: No Ureter Stent: No Subjective Visit Visit for: follow up visit, knee and injections Immunization / Flu Flu Vaccine in the Last 12 Months: No Flu Vaccine Exclusion Criteria: No Exclusion Criteria History of Present Illness Chief complaint: right knee pain Date of injury / onset of symptoms: 2021 Patient is a pleasant 54-year-old male with right greater than left knee pain. this has been ongoing for several years. He has not had any injections. Has tried different anti-inflammatories including ibuprofen in the past. He has not any formal physical therapy. His last injection has only helped somewhat Personal History Occupation: [employer] Red flag PMH: BMI and none BMI Counceling provided: Yes Pain Pain level (0-10): 6 Pain duration: WITH MOVEMENT Pain location: inside (medial) and anterior Pain quality: dull and aching Pain timing: night, increases with activity and stairs Associated signs & symptoms: numbness Ambulatory data Ambulatory device: none Treatments Number of previous injections: 2 Improvement with previous injections: No Number of Physical Therapy sessions: 0 Improvement with PT: No Improvement with NSAIDS: no (IBUPROFEN, DICLOFENAC ) Review of Systems Review of Systems: All systems negative unless otherwise noted in HPI.
== END 2025-07-09 15:18 | disposition home or self-care (01) ==
LOC: HODSRG 14:51
PROVIDERS: PCP Family Medicine; Referring Provider Family Medicine; Supervising Provider Orthopaedic Surgery Adult Reconstructive Orthopaedic Surgery; Visit Provider Orthopaedic Surgery Adult Reconstructive Orthopaedic Surgery
DX: M25.562 Pain in left knee (principal); M25.561 Pain in right knee; M17.0 Bilateral primary osteoarthritis of knee
CPT/HCPCS: 99213; G0463

== ENCOUNTER 2025-08-01 15:30 | Outpatient (RCR) | payer MEDICAID, SELFPAY ==
--- NOTE | 2025-07-19 15:47 | PTNOTE_ITS ---
PT OP Initial Eval Patient Information Outpatient Physical Therapy Treatment Date: 07/19/25 Visit Reasons: RIGHT KNEE OA Medical Diagnosis: Bilateral Knee OA Treatment Dx #1: Left Knee Pain Treatment Dx #2: Right Knee Pain Start of Care: 07/19/25 Date of Onset: 1 year ago Smoking Status Smoking Status: Never smoker Initial Assessment Subjective: Pt is a 55 y/o male reports of chronic knee pain L>R worsening ~ 1 year ago. Pt's most recent xray showed moderate to advanced knee OA and extensive meniscal tears based on MRI. Pt has difficulty with standing, walking, chores, self care, cooking, balance, stairs, squatting, and performing recreational activities. Objective: Bilateral Knee AROM: all motions are WFL with pain Bilateral Knee MMTs: grossly 4-/5 Bilateral Hip MMTs: grossly 4-/5 Active SLR: 60 deg bilaterally Muscle Length: Hs tightness Assessment: Pt demonstrate bilateral knee pain L>R leading to difficulty with ADLs. Pt will attempt physical therapy if pain persist Pt will be refer back to provider for further consultation. Short Term and [facility] Goals 1) Increase bilateral knee AROM WNL in 6 wks to be able to perform chores 2) Increase bilateral knee MMTs grossly to 4/5 in 6 wks to be able to perform stairs and steps 3) Decrease knee pain to 2/10 in 6 wks to be able to stand more than 30 mins 4) Increase hip MMTs grossly to 4/5 in 6 wks to be able to perform recreational activities 5) Indep with HEP Treatment Plan 1) Manual Therapy 2) Therapeutic Activities 3) Therapeutic Exercises 4) Modalities (ice, heat) 5) Balance Training Frequency and Duration: 2 x wk for 6 wks Certification Dates: 07/19/25 to 10/19/25 Procedure Charges OP PT Eval Mod Complex 30 minutes: Yes
--- NOTE | 2025-07-30 15:59 | PT.ODAYNRPT ---
PT Outpatient Daily Note OP Daily Note Outpatient Physical Therapy Treatment Date: 07/30/25 Visit Reasons: RIGHT KNEE OA Subjective: Pt's knee feels about the same and continues to hurt. Minimal changes in the pain since initial evaluation. Objective: Please see flow chart for list of ther ex performed Assessment: tolerate exercises cues to pace in therapy to decrease fatigue and correct form Plan: Continue with PT Length of Time (minutes) of Treatment: 30 Minutes Procedure Charges Therapeutic Exercise 30 minutes: Yes
--- NOTE | 2025-08-01 16:17 | PT.ODAYNRPT ---
PT Outpatient Daily Note OP Daily Note Outpatient Physical Therapy Treatment Date: 08/01/25 Visit Reasons: RIGHT KNEE OA Subjective: Pt's knee is about the same and continues to have pain with all activities. PT is helping a little. Objective: Please see flow chart for list of ther ex performed Assessment: tolerate exercises with minimal pain; no change in overall symptoms post PT Plan: Continue with PT Length of Time (minutes) of Treatment: 30 Minutes Procedure Charges Therapeutic Exercise 30 minutes: Yes
== END 2025-08-11 23:59 | disposition home or self-care (01) ==
LOC: CPTX 15:30
PROVIDERS: PCP Orthopaedic Surgery Adult Reconstructive Orthopaedic Surgery; Referring Provider Orthopaedic Surgery Adult Reconstructive Orthopaedic Surgery; Visit Provider Orthopaedic Surgery Adult Reconstructive Orthopaedic Surgery
DX: M25.562 Pain in left knee (principal); R26.2 Difficulty in walking, not elsewhere classified; R26.89 Other abnormalities of gait and mobility; G89.29 Other chronic pain; M17.0 Bilateral primary osteoarthritis of knee; S83.209D Unspecified tear of unspecified meniscus, current injury, unspecified knee, subsequent encounter; X58.XXXD Exposure to other specified factors, subsequent encounter
CPT/HCPCS: 97110; 97162

== ENCOUNTER 2025-08-21 14:30 | Outpatient (RCR) | payer MEDICAID, SELFPAY ==
--- NOTE | 2025-08-12 16:05 | PT.ODAYNRPT ---
PT Outpatient Daily Note OP Daily Note Outpatient Physical Therapy Treatment Date: 08/12/25 Visit Reasons: RT knee pain Subjective: Pt c/o high knee pain L>R. Objective: Please see flow sheet for ther ex list. Assessment: Pt able to complete assigned interventions but c/o pain, pt determined to complete reps assigned. Plan: Continue with POC. Length of Time (minutes) of Treatment: 30 Minutes Procedure Charges Therapeutic Exercise 30 minutes: Yes
--- NOTE | 2025-08-14 15:37 | PT.ODAYNRPT ---
PT Outpatient Daily Note OP Daily Note Outpatient Physical Therapy Treatment Date: 08/14/25 Visit Reasons: RT knee pain Subjective: Pt's knee is about the same. No change in overall pain. Objective: Please see flow chart for list of ther ex performed Assessment: minimal progress with knee pain and continues to report of pain with all exercises in therapy session Plan: Continue with PT Length of Time (minutes) of Treatment: 30 Minutes Procedure Charges Therapeutic Exercise 30 minutes: Yes
--- NOTE | 2025-08-21 15:58 | PTNOTE_ITS ---
PT OP Progress/Discharge Note Date of Service: 08/21/25 Progress Note/DC Note Progress Note/Discharge Note: DC Note Patient Information Visit Reasons: RT knee pain Medical Diagnosis: Bilateral KNee OA Treatment Dx #1: Left Knee Pain Treatment Dx #2: Right Knee Pain Service Continue Service or Discharge: Discharge Discharge Date: 08/21/25 Status Subjective: Pt's knee pain is about the same and continues to have 8-9/10 pain L>R leading to difficulty with ADLs. Physical therapy has not helped much and will like to follow up with MD. Objective: Bilateral Knee AROM: all motions are WFL with pain Bilateral Knee MMTs: grossly 4-/5 Bilateral Hip MMTs: grossly 4-/5 Active SLR: 60 deg bilaterally Assessment: Pt demonstrate functional bilateral knee mobility and strength, however, no change in pain leading to difficulty with ADLs. Pt will no longer benefit from p hysical therapy due to minimal progress with PT goals. Pt instructed to return back to MD for further consultation; thank you for your referrals. Plan: D/C home and follow up with MD PRN Procedure Charges Therapeutic Exercise 30 minutes: Yes
== END 2025-09-11 23:59 | disposition home or self-care (01) ==
LOC: CPTX 14:30
PROVIDERS: PCP Orthopaedic Surgery Adult Reconstructive Orthopaedic Surgery; Referring Provider Orthopaedic Surgery Adult Reconstructive Orthopaedic Surgery; Visit Provider Orthopaedic Surgery Adult Reconstructive Orthopaedic Surgery
DX: M25.562 Pain in left knee (principal); M25.561 Pain in right knee; R26.2 Difficulty in walking, not elsewhere classified; R26.89 Other abnormalities of gait and mobility; M17.0 Bilateral primary osteoarthritis of knee; G89.29 Other chronic pain
CPT/HCPCS: 97110